=== PATIENT | male | born 1940 | race Caucasian/White ===

== ENCOUNTER 2016-09-20 08:40 | Emergency (ER) | payer MEDICARE, OTHER ==
[~2016-09-20] VITALS: Ht 175.3 cm; Wt 68.0 kg
[~2016-09-20 08:40] MED LIST: ACETAMINOPHEN-1 EAC1 PO; ADULT LOW DOSE81 MG PO; AMITRIPTYLINE H25 MG PO; CALCIUM600 MG PO; CARAFATE1 GM PO; DAILY MULTIPLE1 EACH PO; DONEPEZIL HCL10 MG PO; ENALAPRIL MALEA10 MG PO; GABAPENTIN300 MG PO; IRON55 MG PO; KLOR-CON 1010 MEQ PO; LASIX40 MG PO; LEVOFLOXACIN750 MG PO; MIRAPEX1 MG PO; NITROSTAT0.4 MG SL; NORCO 5-325 TA1 EACH PO; NORCO 7.5-3251 EACH PO; OMEPRAZOLE20 MG PO; PRAVACHOL40 MG PO; PYRIDIUM200 MG PO; VIAGRA100 MG PO; VITAMIN B-121000 MCG PO; VITAMIN B-50 C0.4 MG PO; VITAMIN C1000 MG PO
== END 2016-09-20 10:29 | disposition home or self-care (01) ==
LOC: ED 08:40
DX: F03.90 Unspecified dementia, unspecified severity, without behavioral disturbance, psychotic disturbance, mood disturbance, and anxiety (principal); I10 Essential (primary) hypertension; K21.9 Gastro-esophageal reflux disease without esophagitis; G25.81 Restless legs syndrome; Z87.891 Personal history of nicotine dependence; Z90.49 Acquired absence of other specified parts of digestive tract; Z96.651 Presence of right artificial knee joint
CPT/HCPCS: 99283